=== PATIENT | male | born 1960 | race Caucasian/White ===

== ENCOUNTER 2024-05-01 09:06 | Day surgery (SDC) | payer MEDICARE, BC ==
[~2024-05-01] VITALS: Ht 185.4 cm; Wt 127.7 kg
[~2024-05-01 09:06] MED LIST: PHENYLEPHRINE 10% OPHTH SOL 5ML OD PRN
[2024-05-01] MEDS ORDERED: LISI5TAB11 PO (10:27)
[2024-05-01] MEDS ORDERED: CHIL1CHW3 PO (10:27)
[2024-05-01] MEDS ORDERED: FINA5TAB2 PO (10:27)
[2024-05-01] MEDS ORDERED: CETI10CA13 PO (10:27)
[2024-05-01] MEDS ORDERED: OMEG10002 PO (10:27)
[2024-05-01] MEDS ORDERED: PROTPAK PO (10:27)
[2024-05-01] MEDS ORDERED: GLUCTAB7 PO (10:27)
[2024-05-01] MEDS ORDERED: MELO15TA28 PO (10:27)
[2024-05-01] MEDS ORDERED: D-50CAP PO (10:27)
[2024-05-01] MEDS ORDERED: METF10004 PO (10:27)
[2024-05-01] MEDS ORDERED: CYAN100049 PO (10:27)
[2024-05-01] MEDS ORDERED: MONT-5 PO (10:27)
[2024-05-01] MEDS ORDERED: METO25TA4 PO (10:27)
[2024-05-01] MEDS ORDERED: TAMS1CAP17 PO (10:27)
[2024-05-01] MEDS: OFLOXACIN 0.3 % (OCUFLOX) OPTH SOL 5ML OD ONE (10:58)
[2024-05-01] MEDS: ATROPINE SULFATE 1% OPHTH SOLN 2ML BTL OD SCH (10:58)
[2024-05-01] MEDS: LIDOCAINE 3.5 % 1ML OPHTH TOPICAL GEL OU ONE (10:58)
[2024-05-01] MEDS: TROPICAMIDE 1% OPHTH SOLN 15ML OD SCH (10:58)
[2024-05-01] MEDS: PHENYLEPHRINE 2.5% OPHTH SOL 2ML OD SCH (10:58)
[2024-05-01] MEDS ORDERED: fentaNYL 100 MCG/2 ML INJECTION As Ordered ONE (11:47)
[2024-05-01] MEDS ORDERED: MIDAZOLAM INJ 2MG/2ML VIAL As Ordered ONE (11:48)
[2024-05-01] MEDS: BSS IRRIG/VANCO(10MG)/TOBRA(5MG)/EPINEPH(1:1000-0.5CC)500ML BAG-ORONLY As Ordered ONE (12:17)
[2024-05-01] MEDS: DUOVISC (0.50ML VISCOAT/0.85ML PROVISC) OPHTH KIT As Ordered ONE (12:18)
[2024-05-01] MEDS: LIDOCAINE 1% SDV 5ML VIAL As Ordered ONE (12:18)
[2024-05-01 12:22] VITALS: BP 145/84; TEMP 96.6; O2SAT 97
== END 2024-05-01 12:50 | disposition home or self-care (01) ==
LOC: M SDC 09:06
PROVIDERS: ATTEND Ophthalmology
DX: H25.11 Age-related nuclear cataract, right eye (principal); I10 Essential (primary) hypertension
CPT/HCPCS: 66984; 92015; J2250; J3010; V2788

== ENCOUNTER 2024-05-22 07:57 | Day surgery (SDC) | payer MEDICARE, BC ==
[~2024-05-22] VITALS: Ht 182.9 cm; Wt 127.0 kg
[~2024-05-22 07:57] MED LIST changes: +CETI10CA13 PO; +CHIL1CHW3 PO; +CYAN100049 PO; +D-50CAP PO; +FINA5TAB2 PO; +GLUCTAB7 PO; +LISI5TAB11 PO; +MELO15TA28 PO; +METF10004 PO; +METO25TA4 PO; +MIDAZOLAM INJ 2MG/2ML VIAL As Ordered ONE; +MONT-5 PO; +OMEG10002 PO; -PHENYLEPHRINE 10% OPHTH SOL 5ML OD PRN; +PHENYLEPHRINE 10% OPHTH SOL 5ML OS PRN; +PROTPAK PO; +TAMS1CAP17 PO
[2024-05-22] MEDS: LIDOCAINE 3.5 % 1ML OPHTH TOPICAL GEL OU ONE (08:40)
[2024-05-22] MEDS: OFLOXACIN 0.3 % (OCUFLOX) OPTH SOL 5ML OS ONE (08:40)
[2024-05-22] MEDS: CYCLOPENTOLATE 1% OPHTH SOLN 2ML BTL OS SCH (08:51)
[2024-05-22] MEDS: TROPICAMIDE 1% OPHTH SOLN 15ML OS SCH (08:51)
[2024-05-22] MEDS: PHENYLEPHRINE 2.5% OPHTH SOL 2ML OS SCH (08:51)
[2024-05-22] MEDS: LIDOCAINE 1% SDV 5ML VIAL As Ordered ONE (09:27)
[2024-05-22] MEDS: CEFUROXIME 1MG/0.1ML INTRACAMERAL INJ As Ordered ONE (09:27)
[2024-05-22] MEDS: BSS IRRIG/VANCO(10MG)/TOBRA(5MG)/EPINEPH(1:1000-0.5CC)500ML BAG-ORONLY As Ordered ONE (09:27)
[2024-05-22 09:39] VITALS: BP 130/71; TEMP 97; O2SAT 99
== END 2024-05-22 10:17 | disposition home or self-care (01) ==
LOC: M SDC 07:57
PROVIDERS: ATTEND Ophthalmology
DX: H25.12 Age-related nuclear cataract, left eye (principal); K21.9 Gastro-esophageal reflux disease without esophagitis; Z79.899 Other long term (current) drug therapy; Z79.84 Long term (current) use of oral hypoglycemic drugs; Z79.1 Long term (current) use of non-steroidal anti-inflammatories (NSAID); Z98.41 Cataract extraction status, right eye
CPT/HCPCS: 66984; 92015; J0697; J2250; V2788